=== PATIENT | male | born 1995 | race Two or more races ===

== ENCOUNTER 2016-10-16 12:21 | Emergency (ER) | payer OTHER, MEDICAID ==
[2016-10-16] MEDS ORDERED: DIPHENHYDRAMINE HCL 50 MG CAPSULE ONE (13:23)
[2016-10-16] MEDS ORDERED: FAMOTIDINE 20 MG TABLET ONE (13:23)
[2016-10-16] MEDS ORDERED: PREDNISONE 20 MG TABLET ONE (13:23)
== END 2016-10-16 14:26 | disposition home or self-care (01) ==
LOC: ED 12:21
DX: L50.0 Allergic urticaria (principal)